=== PATIENT | female | born 1980 | race Caucasian/White ===

== ENCOUNTER 2016-07-07 14:52 | Outpatient (CLI) | payer MEDICAID | END 2016-07-07 14:53 | disposition home or self-care (01) | DX: T14.90 Injury, unspecified (principal) ==

== ENCOUNTER 2016-10-28 22:09 | Outpatient (CLI) | payer MEDICAID | END 2016-10-28 22:10 | disposition critical access hospital (66) | DX: R10.9 Unspecified abdominal pain (principal); R11.2 Nausea with vomiting, unspecified; R19.7 Diarrhea, unspecified | CPT/HCPCS: A0425; A0427 ==

== ENCOUNTER 2016-10-28 22:44 | Emergency (ER) | payer MEDICAID ==
--- NOTE | 2016-10-28 23:31 | ED Physician Documentation ---
PD HPI NVD - Stated complaint Stated Complaint: ABD PN/SOA(N/V/D) - Chief complaint Chief Complaint: Abd Pain - History obtained from History obtained from: Patient - History of Present Illness Timing - onset: Today Timing - duration: Hours (about 8 hours) Timing - details: Abrupt onset, Still present (she had onset of nausea, vomiting and diarrhea about 2-3 pm today, which has persisted with repetitive vomiting), Waxing and waning Associated symptoms: Abdominal pain (developed this evening after vomiting for several hours. Pain in epigastric area and esopagheal area, feeling burning and acidic. No noted hematemesis.), Loss of appetite. No: Fever, Hematemesis, Hematochezia, Near syncope / syncope Contributing factors: No: Sick contact, Bad food, Travel, Recent antibiotics Worsened by: Eating Similar symptoms before: Diagnosis (gallbladder infection years ago with [facility]; had similar symptoms.) Recently seen: Not recently seen Review of Systems Constitutional: denies: Fever, Chills, Myalgias Nose: denies: Rhinorrhea / runny nose, Congestion Throat: reports: Sore throat (since vomiting) Cardiac: denies: Chest pain / pressure Respiratory: denies: Dyspnea, Cough GI: reports: Abdominal Pain (for few hours), Nausea, Vomiting (for about 7-8 hours), Diarrhea. denies: Abdominal Swelling : denies: Dysuria, Frequency, Discharge, Missed period Skin: denies: Rash, Lesions Musculoskeletal: denies: Neck pain, Back pain Neurologic: reports: Generalized weakness. denies: Focal weakness, Numbness PD PAST MEDICAL HISTORY - Past Medical History Past Medical History: No GI: GERD - Past Surgical History Past Surgical History: Yes General: Cholecystectomy - Present Medications Home Medications: Ambulatory Orders Medication Instructions Recorded Confirmed Carbamazepine 200 10/28/16 Famotidine [Pepcid] 20 mg PO ONCE #30 tablet 10/29/16 Hydrocodone/Acetaminophen [[place] 1 each PO Q6H PRN #15 tablet 10/29/16 5-325 Tablet] Lidocaine Viscous 2% [Xylocaine 5 ml PO Q4H PRN #1 bottle 10/29/16 Viscous 2%] Ondansetron HCl [Zofran] 4 mg PO Q6H PRN #20 tablet 10/29/16 - Allergies Allergies/Adverse Reactions: Allergies Allergy/AdvReac Type Severity Reaction Status Date / Time No Known Drug Allergies Allergy Verified 10/28/16 22:55 - Social History Does the pt smoke?: No Smoking Status: Never smoker Does the pt drink ETOH?: No Does the pt have substance abuse?: No PD ED PE NORMAL - Vitals Vital signs reviewed: Yes - General General: Alert and oriented X 3, No acute distress, Well developed/nourished - HEENT HEENT: Ears normal, Moist mucous membranes, Pharynx benign - Neck Neck: Supple, no meningeal sign, No adenopathy - Cardiac Cardiac: RRR, No murmur - Respiratory Respiratory: Clear bilaterally - Abdomen Abdomen: Normal bowel sounds, Soft, Non distended, No organomegaly, Other ( tender epigastric area without guarding nor percussion tenderness. ) - Female Female : Deferred - Rectal Rectal: Deferred - Back Back: No CVA TTP - Derm Derm: Normal color, Warm and dry - Extremities Extremities: Normal ROM s pain, No edema, No calf tenderness / cord - Neuro Neuro: Alert and oriented X 3, No motor deficit, Normal speech - Psych Psych: Normal mood, Normal affect Results - Vitals Vitals: Vital Signs - 24 hr 10/28/16 10/29/16 22:47 00:53 Temperature 35.9 C L Heart Rate 67 75 Respiratory 16 14 Rate Blood Pressure 124/62 114/66 O2 Saturation 98 98 Oxygen O2 Source Room air - Labs Labs: Laboratory Tests 10/29/16 10/29/16 10/29/16 00:05 00:05 00:24 WBC 10.9 H RBC 3.86 L Hgb 12.4 Hct 36.0 L MCV 93.4 MCH 32.1 H MCHC 34.4 RDW 12.5 Plt Count 174 MPV 7.6 L Neut # 9.7 H Lymph # 0.5 L [place] # 0.6 Eos # 0.1 Baso # 0.0 Absolute Nucleated RBC 0.00 Nucleated RBCs 0.0 Sodium 137 Potassium 3.3 L Chloride 106 Carbon Dioxide 25 Anion Gap 6.0 BUN 14 Creatinine 0.7 Estimated GFR (MDRD) 96 Glucose 119 H Calcium 7.8 L Total Bilirubin 1.1 H AST 440 H ALT 250 H Alkaline Phosphatase 88 Total Protein 6.7 Albumin 3.8 Globulin 2.9 Albumin/Globulin Ratio 1.3 Lipase 36 Urine Color YELLOW Urine Clarity CLEAR Urine pH 6.5 Ur Specific [place] 1.020 Urine Protein NEGATIVE Urine Glucose (UA) NEGATIVE Urine Ketones TRACE Urine Occult Blood NEGATIVE Urine Nitrite NEGATIVE Urine Bilirubin NEGATIVE Urine Urobilinogen 0.2 (NORMAL) Ur Leukocyte Esterase NEGATIVE Ur Microscopic Review NOT INDICATED Urine Culture Comments NOT INDICATED Urine HCG, Qual NEGATIVE PD MEDICAL DECISION MAKING - ED course Complexity details: re-evaluated patient (improved symptoms with IV fluids and meds. Pain improved with GI cocktail but not resolved. Given IV meds for nausea and pain as well. ), considered differential, d/w patient Departure - Departure Disposition: 01 Home, Self Care Clinical Impression: Nausea vomiting and diarrhea, Epigastric abdominal pain Condition: Stable Record reviewed to determine appropriate education?: Yes Instructions: ED Nausea Vomiting, ED Gastritis Follow-Up: [facility] [Provider Group] Prescriptions: Hydrocodone/Acetaminophen [[place] 5-325 Tablet] 1 each PO Q6H PRN #15 tablet PRN Reason: Pain Famotidine [Pepcid] 20 mg PO ONCE #30 tablet Lidocaine Viscous 2% [Xylocaine Viscous 2%] 5 ml PO Q4H PRN #1 bottle PRN Reason: Pain Ondansetron HCl [Zofran] 4 mg PO Q6H PRN #20 tablet PRN Reason: Nausea / Vomiting Comments: At this point, it would seem most likely that you have a stomach virus causing the abrupt vomiting and diarrhea, and subsequently have irritated stomach and esophagus from the vomiting. Take Ondansatron as needed for nausea. Famotidine daily for 2-3 weeks as it can take several days or more for the stomach to heal the irritation and reducing stomach acids can help. Use Tylenol or hydrocodone for pain. You can also use 5 ml of the lidocaine along with some antacid such as Maalox or Mylanta to help with the esophageal/stomach pains the next couple of days. This should improve over the next 2-3 days. Return if not improving or if symptoms worsen. Forms: Activity restrictions Discharge Date/Time: 10/29/16 01:16
[2016-10-28] MEDS ORDERED: ONDANSETRON 4 MG/2 ML VIAL IVP STA (23:46)
[2016-10-28] MEDS ORDERED: SODIUM CHLORIDE 0.9% 1,000 ML IV ONE (23:46)
[2016-10-28] MEDS ORDERED: MAG HYDROX/AL HYDROX/SIMETH 30 ML UDC PO STA (23:47)
[2016-10-28] MEDS ORDERED: FAMOTIDINE 20 MG/50 ML 50 ML IV ONE (23:47)
[2016-10-28] MEDS ORDERED: HYDROmorphone 1 MG/ML SYRINGE IVP STA (23:47)
[2016-10-28] MEDS ORDERED: LIDOCAINE VISCOUS 2% 15 ML UDC MM STA (23:47)
[2016-10-29] MEDS ORDERED: MAG HYDROX/AL HYDROX/SIMETH 30 ML UDC ONE (00:01)
[2016-10-29] MEDS ORDERED: FAMOTIDINE 20 MG/50 ML 50 ML IV ONE (00:01)
[2016-10-29] MEDS ORDERED: HYDROmorphone 1 MG/ML SYRINGE ONE ×2 (00:01→00:58)
[2016-10-29] MEDS ORDERED: LIDOCAINE VISCOUS 2% 15 ML UDC MM ONE (00:01)
[2016-10-29] MEDS ORDERED: ONDANSETRON 4 MG/2 ML VIAL ONE (00:10)
[2016-10-29 00:18] LABS: BASOPHILS % (AUTO) 0.3 %; EOSINOPHILS # (AUTO) 0.1 10^3/uL (0.0-0.7); EOSINOPHILS % (AUTO) 0.6 %; HGB - HEMOGLOBIN 12.4 g/dL (12.0-16.0); LYMPHOCYTES # (AUTO) 0.5 10^3/uL (1.5-3.5); LYMPHOCYTES % (AUTO) 4.3 %; MEAN CORPUSCULAR HEMOGLOBIN 32.1 pg (27.0-31.0); MEAN CORPUSCULAR HGB CONC 34.4 g/dL (32.0-36.0); MEAN CORPUSCULAR VOLUME 93.4 fL (81.0-99.0); MEAN PLATELET VOLUME 7.6 fL (7.9-10.8); MONOCYTES # (AUTO) 0.6 10^3/uL (0.0-1.0); MONOCYTES % (AUTO) 5.4 %; NEUTROPHILS # (AUTO) 9.7 10^3/uL (1.5-6.6); NEUTROPHILS % (AUTO) 89.4 %; RED BLOOD COUNT 3.86 10^6/uL (4.20-5.40); RED CELL DISTRIBUTION WIDTH 12.5 % (12.0-15.0); UNCORRECTED WHITE BLOOD COUNT 10.9 x10^3/uL; WHITE BLOOD COUNT 10.9 x10^3/uL (4.8-10.8)
[2016-10-29 00:33] LABS: BILIRUBIN,URINE NEGATIVE (NEGATIVE); PH,URINE 6.5 PH (5.0-7.5)
[2016-10-29 00:34] LABS: HCG UR QUAL NEGATIVE; UA CHARGE (STRIP ONLY) YES; UR CULTURE IF IND NOT INDICATED
[2016-10-29 00:36] LABS: ALBUMIN/GLOBULIN RATIO 1.3 (1.0-2.2); BILIRUBIN,TOTAL 1.1 mg/dL (0.2-1.0); CALCIUM 7.8 mg/dL (8.5-10.3); CREATININE 0.7 mg/dL (0.4-1.0); POTASSIUM 3.3 mmol/L (3.5-5.0); TOTAL PROTEIN 6.7 g/dL (6.7-8.2)
[2016-10-29] MEDS ORDERED: HYDROmorphone 1 MG/ML SYRINGE IVP STA (00:49)
[2016-10-29] MEDS ORDERED: HYDROcod/ACET 5/325 Prepack 6 PO ONE ×2 (00:50→00:59)
[2016-10-29] MEDS ORDERED: ONDANSETRON ODT 4 MG Prepack 2 TL PRN (00:50)
[2016-10-29 00:55] VITALS: BP 114/66
[2016-10-29] MEDS ORDERED: ONDANSETRON ODT 4 MG Prepack 2 TL ONE (00:59)
== END 2016-10-29 01:16 | disposition home or self-care (01) ==
LOC: EDUNIT# → ED 22:44
DX: R11.2 Nausea with vomiting, unspecified (principal); R19.7 Diarrhea, unspecified; R10.13 Epigastric pain; K21.9 Gastro-esophageal reflux disease without esophagitis
CPT/HCPCS: 36415; 80053; 81003; 81025; 83690; 85025; 96374; 96375; 96376; 99284; A9270; J1170; 81001; 87086

== ENCOUNTER 2018-04-29 12:57 | Outpatient (CLI) | payer MEDICAID | END 2018-04-29 12:58 | disposition critical access hospital (66) | LOC: EMS 12:57 | PROVIDERS: ATTEND Surgery | DX: M25.521 Pain in right elbow (principal) | CPT/HCPCS: A0425; A0429; A0999 ==

== ENCOUNTER 2018-04-29 13:31 | Emergency (ER) | payer MEDICAID ==
[2018-04-29 13:38] VITALS: BP 122/94
[2018-04-29] MEDS ORDERED: LIDOCAINE 1%-EPI 1:100000 30 ML MDV SUBQ STA (13:39)
[2018-04-29] MEDS ORDERED: SULFAMETH/TRIMETH DS 800/160 MG TABLET PO STA (13:39)
--- NOTE | 2018-04-29 13:41 | ED Physician Documentation ---
PD HPI UPPER EXT INJURY - Stated complaint Stated Complaint: SWOLLEN ARM - Chief complaint Chief Complaint: Ext Problem - History obtained from History obtained from: Patient - History of Present Illness Location: Right, Elbow Type of injury: Other (She had a scrapeOver the right olecranon bursa that became progressively swollen and painful without fevers or chills.) Review of Systems Constitutional: denies: Fever, Chills Cardiac: reports: Reviewed and negative Respiratory: reports: Reviewed and negative : reports: Reviewed and negative PD PAST MEDICAL HISTORY - Past Medical History GI: GERD - Past Surgical History Past Surgical History: Yes General: Cholecystectomy - Present Medications Home Medications: Ambulatory Orders Medication Instructions Recorded Confirmed Carbamazepine 200 10/28/16 Famotidine [Pepcid] 20 mg PO ONCE #30 tablet 10/29/16 Hydrocodone/Acetaminophen [[place] 1 each PO Q6H PRN #15 tablet 10/29/16 5-325 Tablet] Lidocaine Viscous 2% [Xylocaine 5 ml PO Q4H PRN #1 bottle 10/29/16 Viscous 2%] Ondansetron HCl [Zofran] 4 mg PO Q6H PRN #20 tablet 10/29/16 Sulfamethoxazole/Trimethoprim 1 each PO BID #14 tablet 04/29/18 [Sulfamethoxazole-Tmp Ds Tablet] - Allergies Allergies/Adverse Reactions: Allergies Allergy/AdvReac Type Severity Reaction Status Date / Time No Known Drug Allergies Allergy Verified 04/29/18 13:37 - Social History Does the pt smoke?: No Smoking Status: Never smoker Does the pt drink ETOH?: No Does the pt have substance abuse?: No PD ED PE NORMAL - Vitals Vital signs reviewed: Yes - General General: Alert and oriented X 3, No acute distress - Extremities Extremities: Other (On the right she has what appears to be septic olecranon bursitis with a little scrape over the olecranon bursa and swelling with cellulitis about a third the way down the forearm. She has full and painless range of motion of the right elbow.) - Neuro Neuro: Alert and oriented X 3, Normal speech Results - Vitals Vitals: Vital Signs - 24 hr 04/29/18 13:35 Temperature 36.5 C Heart Rate 83 Respiratory 16 Rate Blood Pressure 122/94 H O2 Saturation 98 Oxygen O2 Source Room air Procedures - Abscess I&D (location) R olecranon bursa Preparation: Chlorhexadine, Lidocaine 1%, With epi Incision: Incised with scalpel, Purulent drainage, Loculations broken, Culture obtained. No: Packed (too small) Other: Pt tolerated well, Dressing applied, Antibiotic prescribed Departure - Departure Disposition: 01 Home, Self Care Clinical Impression: Olecranon bursitis, right elbow Condition: Good Record reviewed to determine appropriate education?: Yes Instructions: ED Bursitis Elbow Olecranon Follow-Up: [facility] [Provider Group] Prescriptions: Sulfamethoxazole/Trimethoprim [Sulfamethoxazole-Tmp Ds Tablet] 1 each PO BID #14 tablet Comments: We are performing a wound culture, the results should be done in 48-72 hours. If antibiotic change is necessary we will call you. Return if worse in the m eantime, especially if you develop increased pain, fevers, cannot keep down the medication. Otherwise follow-up with your physician in approximately 2-3 days.
== END 2018-04-29 14:27 | disposition home or self-care (01) ==
LOC: EDBD → EDUNIT# → ED 13:31
DX: M70.21 Olecranon bursitis, right elbow (principal)
CPT/HCPCS: 23931; 87070; 87181; 87205; 99283

== ENCOUNTER 2018-04-29 16:30 | Emergency (ER) | payer MEDICAID ==
[2018-04-29] MEDS ORDERED: IBUPROFEN 800 MG TABLET PO STA (16:40)
--- NOTE | 2018-04-29 16:41 | ED Physician Documentation ---
PD HPI UPPER EXT INJURY - Stated complaint Stated Complaint: RT ARM PX - History obtained from History obtained from: Patient - History of Present Illness Location: Right (She was seen earlier in the day for right olecranon bursitis. She had declined pain medication at the time, but she has been waiting in the waiting room for a cab and now is starting to hurt more and checks back and requesting pain medication.) Review of Systems Constitutional: reports: Reviewed and negative Cardiac: reports: Reviewed and negative Respiratory: reports: Reviewed and negative PD PAST MEDICAL HISTORY - Past Medical History GI: GERD - Past Surgical History Past Surgical History: Yes General: Cholecystectomy - Present Medications Home Medications: Ambulatory Orders Medication Instructions Recorded Confirmed Carbamazepine 200 10/28/16 Famotidine [Pepcid] 20 mg PO ONCE #30 tablet 10/29/16 Hydrocodone/Acetaminophen [[place] 1 each PO Q6H PRN #15 tablet 10/29/16 5-325 Tablet] Lidocaine Viscous 2% [Xylocaine 5 ml PO Q4H PRN #1 bottle 10/29/16 Viscous 2%] Ondansetron HCl [Zofran] 4 mg PO Q6H PRN #20 tablet 10/29/16 Ibuprofen [Motrin] 800 mg PO Q8H PRN #30 tablet 04/29/18 Sulfamethoxazole/Trimethoprim 1 each PO BID #14 tablet 04/29/18 [Sulfamethoxazole-Tmp Ds Tablet] - Allergies Allergies/Adverse Reactions: Allergies Allergy/AdvReac Type Severity Reaction Status Date / Time No Known Drug Allergies Allergy Verified 04/29/18 13:37 - Social History Does the pt smoke?: No Smoking Status: Never smoker Does the pt drink ETOH?: No Does the pt have substance abuse?: No PD ED PE NORMAL - Vitals Vital signs reviewed: Yes - General General: Alert and oriented X 3, No acute distress - Extremities Extremities: Other (The arm was not unwrapped are reexamined given the short time frame since the last examination.) - Neuro Neuro: Alert and oriented X 3, Normal speech - Psych Psych: Normal mood, Normal affect Results - Vitals Vitals: Oxygen O2 Source Room air Departure - Departure Disposition: 01 Home, Self Care Clinical Impression: Olecranon bursitis, right elbow Condition: Good Record reviewed to determine appropriate education?: Yes Prescriptions: Ibuprofen [Motrin] 800 mg PO Q8H PRN #30 tablet PRN Reason: PAIN &/OR FEVER Comments: Still follow the discharge instructions from earlier in the day regarding follow-up
[2018-04-29 16:43] VITALS: BP 137/95
== END 2018-04-29 16:48 | disposition home or self-care (01) ==
LOC: ED 16:30
DX: M70.21 Olecranon bursitis, right elbow (principal)
CPT/HCPCS: 23931; 87070; 87181; 87205; 99283; A9270

== ENCOUNTER 2018-07-09 11:27 | Emergency (ER) | payer MEDICAID ==
[2018-07-09 12:10] VITALS: BP 118/58
--- NOTE | 2018-07-09 15:31 | ED Physician Documentation ---
History of Present Illness - Stated complaint Stated Complaint: RIB PAIN - Chief complaint Chief Complaint: General - History obtained from History obtained from: Patient - Additonal information Additional information: Patient is a 38-year-old female presenting with right-sided posterior rib pain Following fall down the stairs several days ago. Patient denies striking of head, loss of consciousness, or other injury. Currently she has no complaints such as headache, difficulty breathing, neck or back pain, abdominal pain, vaginal changes such as worsening bleeding, urinary or stool changes. Patient has been in her usual state of health otherwise. Patient reports movement has worsening symptoms and there are no alleviating factors. Review of Systems Constitutional: denies: Fever Cardiac: denies: Chest pain / pressure PD PAST MEDICAL HISTORY - Past Medical History GI: GERD - Past Surgical History Past Surgical History: Yes General: Cholecystectomy - Present Medications Home Medications: Ambulatory Orders Medication Instructions Recorded Confirmed RX: Carbamazepine 200 10/28/16 Hydrocodone/Acetaminophen [[place] 1 each PO Q6H PRN #15 tablet 10/29/16 5-325 Tablet] Ondansetron HCl [Zofran] 4 mg PO Q6H PRN #20 tablet 10/29/16 RX: Famotidine [Pepcid] 20 mg PO ONCE #30 tablet 10/29/16 RX: Lidocaine Viscous 2% 5 ml PO Q4H PRN #1 bottle 10/29/16 [Xylocaine Viscous 2%] Ibuprofen [Motrin] 800 mg PO Q8H PRN #30 tablet 04/29/18 Sulfamethoxazole/Trimethoprim 1 each PO BID #14 tablet 04/29/18 [Sulfamethoxazole-Tmp Ds Tablet] - Allergies Allergies/Adverse Reactions: Allergies Allergy/AdvReac Type Severity Reaction Status Date / Time No Known Drug Allergies Allergy Verified 07/09/18 12:10 - Social History Does the pt smoke?: No Smoking Status: Never smoker Does the pt drink ETOH?: No Does the pt have substance abuse?: No PD ED PE NORMAL - General General: Alert and oriented X 3, No acute distress, Well developed/nourished - HEENT HEENT: Atraumatic, Moist mucous membranes, Pharynx benign - Cardiac Cardiac: RRR, No murmur, Other (Reproducible pain with palpation of her right posterior ribs at approximate level of 8-10. Remainder of ribs and sternum without pain when palpated.) - Respiratory Respiratory: No respiratory distress, Clear bilaterally - Abdomen Abdomen: Normal bowel sounds, Soft, Non tender, Non distended - Derm Derm: Normal color, Warm and dry, No rash - Extremities Extremities: No deformity - Neuro Neuro: Alert and oriented X 3, No motor deficit, No sensory deficit Results - Vitals Vitals: Vital Signs - 24 hr 07/09/18 12:06 Temperature 36.2 C L Heart Rate 75 Respiratory 16 Rate Blood Pressure 118/58 L O2 Saturation 100 Oxygen O2 Source Room air PD MEDICAL DECISION MAKING - ED course Complexity details: reviewed results, re-evaluated patient, considered differential, d/w patient, d/w family ED course: Most concerning for rib contusion, rib fracture, chest wall injury, musculoskeletal injury given patient's type of injury, location of discomfort, and physical exam findings. Patient [place] denies other injuries and did not find high concerns for intracranial, spinal spinal cord, other chest, abdominal, or extremity trauma. Patient also denies symptoms that raise concerns for other acute medical emergencies or systemic signs of illness. Patient denies and chest x-ray with rib plain films also obtained which not been evidence of abnormality. Discussed results and recommendations with patient, as well as supportive cares, return precautions, and appropriate follow-up. Departure - Departure Disposition: 01 Home, Self Care Clinical Impression: Rib pain on right side Condition: Good Instructions: ED Contusion Chest Wall Follow-Up: Felicia Figueroa ARNP [Primary Care Provider] - Within 3 Days Comments: Recommend use of ibuprofen/Tylenol to help reduce pain and discomfort, may also apply heating pad. Recommend follow-up with primary care physician next 2-3 days and return to ED sooner if expands worsening symptoms or other concerns. Discharge Date/Time: 07/09/18 16:56
--- NOTE | 2018-07-09 16:41 | XRAY Report ---
Reason: RIGHT POSTERIOR RIB PAIN Procedure Date: 07/09/2018 Accession Number: [id number] / [id number] Procedure: XR - Ribs w/PA Chest RT CPT Code: FULL RESULT: EXAM: RIGHT RIB RADIOGRAPHY EXAM DATE: 07/09/2018 04:06 PM. CLINICAL HISTORY: RIGHT POSTERIOR RIB PAIN. COMPARISON: None. TECHNIQUE: 1 view of the chest and 4 views of the ribs. FINDINGS: Bones: Normal. No fracture or bone lesion. Lungs: No focal opacities. No pneumothorax. No pleural effusions. Mediastinum: Heart and mediastinal contours are unremarkable. Other: None. IMPRESSION: Normal chest and rib radiography. [facility]
== END 2018-07-09 16:56 | disposition home or self-care (01) ==
LOC: ED 11:27
DX: R07.81 Pleurodynia (principal); Z91.81 History of falling
CPT/HCPCS: 99282

== ENCOUNTER 2018-08-19 18:32 | Emergency (ER) | payer MEDICAID ==
[2018-08-19 18:36] VITALS: BP 140/70
--- NOTE | 2018-08-19 19:14 | ED Physician Documentation ---
PD HPI FEMALE - Stated complaint Stated Complaint: FEM - Chief complaint Chief Complaint: Abd Pain - History obtained from History obtained from: Patient - History of Present Illness Timing - onset: Today (She has a tampon stuck in her vagina) Timing - details: Abrupt onset Associated symptoms: No: Abdominal pain Review of Systems Constitutional: reports: Reviewed and negative Cardiac: reports: Reviewed and negative Respiratory: reports: Reviewed and negative PD PAST MEDICAL HISTORY - Past Medical History GI: GERD - Past Surgical History Past Surgical History: Yes General: Cholecystectomy - Present Medications Home Medications: Ambulatory Orders Medication Instructions Recorded Confirmed Carbamazepine 200 10/28/16 Famotidine [Pepcid] 20 mg PO ONCE #30 tablet 10/29/16 Hydrocodone/Acetaminophen [[place] 1 each PO Q6H PRN #15 tablet 10/29/16 5-325 Tablet] Lidocaine Viscous 2% [Xylocaine 5 ml PO Q4H PRN #1 bottle 10/29/16 Viscous 2%] Ondansetron HCl [Zofran] 4 mg PO Q6H PRN #20 tablet 10/29/16 Ibuprofen [Motrin] 800 mg PO Q8H PRN #30 tablet 04/29/18 Sulfamethoxazole/Trimethoprim 1 each PO BID #14 tablet 04/29/18 [Sulfamethoxazole-Tmp Ds Tablet] - Allergies Allergies/Adverse Reactions: Allergies Allergy/AdvReac Type Severity Reaction Status Date / Time No Known Drug Allergies Allergy Verified 08/19/18 18:36 - Social History Does the pt smoke?: No Smoking Status: Never smoker Does the pt drink ETOH?: No Does the pt have substance abuse?: No PD ED PE NORMAL - Vitals Vital signs reviewed: Yes - General General: Alert and oriented X 3, No acute distress - Female Female : Casting Sorter present (Jessica ANAYA), Other (There was a tampon deep in the vaginal vault which was removed easily using forceps during examination.) - Neuro Neuro: Alert and oriented X 3, Normal speech - Psych Psych: Normal mood, Normal affect Results - Vitals Vitals: Vital Signs - 24 hr 08/19/18 18:35 Temperature 36.5 C Heart Rate 65 Respiratory 17 Rate Blood Pressure 140/70 H O2 Saturation 100 Oxygen O2 Source Room air Departure - Departure Disposition: 01 Home, Self Care Clinical Impression: Vaginal foreign body Qualifiers: Encounter type: initial encounter Qualified Code(s): T19.2XXA - Foreign body in vulva and vagina, initial encounter Condition: Good Record reviewed to determine appropriate education?: Yes Instructions: ED Foreign Body Vaginal Comments: Your blood pressure was elevated today on check into the emergency department. This does not mean that you have hypertension, it is a common phenomenon to come to the emergency department and have elevated blood pressure. I recommend that you see your primary care physician within the week to have it rechecked when you are feeling better.
== END 2018-08-19 19:31 | disposition home or self-care (01) ==
LOC: ED 18:32
DX: T19.2XXA Foreign body in vulva and vagina, initial encounter (principal); X58.XXXA Exposure to other specified factors, initial encounter; R03.0 Elevated blood-pressure reading, without diagnosis of hypertension
CPT/HCPCS: 99283

== ENCOUNTER 2020-08-14 | Emergency (ER) | payer MEDICAID ==
--- NOTE | 2020-08-14 17:18 | ED Physician Documentation ---
PD HPI SKIN - Stated complaint Stated Complaint: RASH - Chief complaint Chief Complaint: Wound - History obtained from History obtained from: Patient (She noticed a rash mostly on the left upper extremity starting yesterday. No clear inciting factor. Its not particularly itchy. She thinks is on the right arm as well but much milder there.) Review of Systems Constitutional: reports: Reviewed and negative Eyes: reports: Reviewed and negative Ears: reports: Reviewed and negative Nose: reports: Reviewed and negative PD PAST MEDICAL HISTORY - Past Medical History GI: GERD : None - Past Surgical History Past Surgical History: Yes General: Cholecystectomy - Present Medications Home Medications: Ambulatory Orders Medication Instructions Recorded Confirmed Carbamazepine 200 10/28/16 Famotidine [Pepcid] 20 mg PO ONCE #30 tablet 10/29/16 Hydrocodone/Acetaminophen [[place] 1 each PO Q6H PRN #15 tablet 10/29/16 5-325 Tablet] Lidocaine Viscous 2% [Xylocaine 5 ml PO Q4H PRN #1 bottle 10/29/16 Viscous 2%] Ondansetron HCl [Zofran] 4 mg PO Q6H PRN #20 tablet 10/29/16 Ibuprofen [Motrin] 800 mg PO Q8H PRN #30 tablet 04/29/18 Sulfamethoxazole/Trimethoprim 1 each PO BID #14 tablet 04/29/18 [Sulfamethoxazole-Tmp Ds Tablet] Triamcinolone 0.1% Oint 1 applic TOP BID #80 gm 08/14/20 - Allergies Allergies/Adverse Reactions: Allergies Allergy/AdvReac Type Severity Reaction Status Date / Time No Known Drug Allergies Allergy Verified 08/14/20 16:53 - Social History Does the pt smoke?: No Smoking Status: Never smoker Does the pt drink ETOH?: No Does the pt have substance abuse?: No PD ED PE NORMAL - Vitals Vital signs reviewed: Yes - General General: Alert and oriented X 3, No acute distress - Derm Derm: Other (There is about a palm sized area of what looks like urticaria on the left bicep. I do not appreciated anywhere else.) - Neuro Neuro: Alert and oriented X 3, Normal speech Results - Vitals Vitals: Vital Signs - 24 hr 08/14/20 16:48 Temperature 36.7 C Heart Rate 54 L Respiratory 16 Rate Blood Pressure 112/66 O2 Saturation 100 Oxygen O2 Source Room air Departure - Departure Disposition: 01 Home, Self Care Clinical Impression: Urticaria Condition: Good Record reviewed to determine appropriate education?: Yes Instructions: ED Urticaria Prescriptions: Triamcinolone 0.1% Oint 1 applic TOP BID #80 gm Comments: Worsening or if new symptoms develop. Follow-up with your doctor next week for recheck. The steroid cream should help in the meantime.
== END 2020-08-14 17:27 | disposition home or self-care (01) ==
DX: L50.9 Urticaria, unspecified (principal)
CPT/HCPCS: 99282; 99283

== ENCOUNTER 2020-08-26 08:45 | Emergency (ER) | payer MEDICAID ==
[2020-08-26 09:01] VITALS: BP 111/56
[2020-08-26 10:02] LABS: BILIRUBIN,URINE NEGATIVE (NEGATIVE); GLUCOSE, URINE (UA) NEGATIVE (NEGATIVE); KETONES,URINE (UA) NEGATIVE (NEGATIVE); LEUKOCYTE ESTERASE, URINE NEGATIVE (NEGATIVE); NITRITE,URINE NEGATIVE (NEGATIVE); OCCULT BLOOD,URINE MODERATE (NEGATIVE); PROTEIN,URINE NEGATIVE (NEGATIVE); UROBILINOGEN,URINE 0.2 (NORMAL) E.U./dL (NORMAL)
[2020-08-26 10:03] LABS: BACTERIA,URINE None Seen /HPF (None Seen); CLARITY,URINE CLEAR (CLEAR); HCG UR QUAL NEGATIVE; SQUAMOUS EPITHELIAL CELL,UR RARE Squamous (<= Few); WBC,URINE 0-3 /HPF (0-5)
--- NOTE | 2020-08-26 10:17 | ED Physician Documentation ---
History of Present Illness - Stated complaint Stated Complaint: FEMALE - Chief complaint Chief Complaint: General - History obtained from History obtained from: Patient - Additonal information Additional information: 40-year-old woman with history of irregular menses presents with vaginal spotting over the past 3 days. She denies back pain, abdominal pain, nausea or vomiting, dysuria, increased urinary frequency or foul smell. She states she has no concern for STI and is not sexually active. No other prior medical history and no history of kidney disease. Patient would like to make sure that she does not have a life-threatening condition. Review of Systems Constitutional: denies: Fever, Chills GI: denies: Abdominal Pain : reports: Vaginal bleeding. denies: Dysuria Musculoskeletal: denies: Back pain PD PAST MEDICAL HISTORY - Past Medical History Past Medical History: Yes GI: GERD : None - Past Surgical History Past Surgical History: Yes General: Cholecystectomy - Present Medications Home Medications: Ambulatory Orders Medication Instructions Recorded Confirmed Carbamazepine 200 10/28/16 Famotidine [Pepcid] 20 mg PO ONCE #30 tablet 10/29/16 Hydrocodone/Acetaminophen [[place] 1 each PO Q6H PRN #15 tablet 10/29/16 5-325 Tablet] Lidocaine Viscous 2% [Xylocaine 5 ml PO Q4H PRN #1 bottle 10/29/16 Viscous 2%] Ondansetron HCl [Zofran] 4 mg PO Q6H PRN #20 tablet 10/29/16 Ibuprofen [Motrin] 800 mg PO Q8H PRN #30 tablet 04/29/18 Sulfamethoxazole/Trimethoprim 1 each PO BID #14 tablet 04/29/18 [Sulfamethoxazole-Tmp Ds Tablet] Triamcinolone 0.1% Oint 1 applic TOP BID #80 gm 08/14/20 - Allergies Allergies/Adverse Reactions: Allergies Allergy/AdvReac Type Severity Reaction Status Date / Time everything Allergy Unknown Uncoded 08/26/20 09:04 - Social History Does the pt smoke?: No Smoking Status: Never smoker Does the pt drink ETOH?: No Does the pt have substance abuse?: No PD ED PE NORMAL - Vitals Vital signs reviewed: Yes - General General: Alert and oriented X 3, No acute distress, Well developed/nourished - HEENT HEENT: Atraumatic, PERRL, EOMI - Neck Neck: Supple, no meningeal sign - Cardiac Cardiac: RRR - Respiratory Respiratory: No respiratory distress, Clear bilaterally - Abdomen Abdomen: Non tender, Non distended - Female Female : Pt declined - Back Back: No CVA TTP - Derm Derm: Normal color - Extremities Extremities: No deformity - Neuro Neuro: Alert and oriented X 3 - Psych Psych: Normal mood, Normal affect Results - Vitals Vitals: Vital Signs - 24 hr 08/26/20 08:52 Temperature 36.6 C Heart Rate 58 L Respiratory 16 Rate Blood Pressure 111/56 L O2 Saturation 100 Oxygen O2 Source Room air - Labs Labs: Laboratory Tests 08/26/20 08/26/20 09:56 09:56 Urine Color YELLOW Urine Clarity CLEAR Urine pH 7.0 Ur Specific [place] 1.010 Urine Protein NEGATIVE Urine Glucose (UA) NEGATIVE Urine Ketones NEGATIVE Urine Occult Blood MODERATE H Urine Nitrite NEGATIVE Urine Bilirubin NEGATIVE Urine Urobilinogen 0.2 (NORMAL) Ur Leukocyte Esterase NEGATIVE Urine RBC 6-10 H Urine WBC 0-3 Ur Squamous Epith Cells RARE Squamous Urine Bacteria None Seen Urine Culture Comments NOT INDICATED Urine HCG, Qual NEGATIVE PD MEDICAL DECISION MAKING - ED course ED course: 40-year-old woman, previously healthy, presented with concerns about vaginal bleeding versus hematuria. She was reassured after a urinalysis showed no signs of infection or kidney dysfunction. I did discuss that there was blood on the urinalysis but that it is more likely coming from the vagina given that she is prone to irregular menses. LMP 1 week ago. I offered to do a vaginal exam and she declined. She states that she has no concern for STI. She does not believe that she has a vaginal foreign body. Return precautions given. Patient will follow up with [facility]. Departure - Departure Disposition: 01 Home, Self Care Clinical Impression: Vaginal spotting, Irregular menses Condition: Good Instructions: ED Bleed Irregular Vaginal Follow-Up: Neris Rincon MD [Provider Admit Priv/Credential] - Comments: You were seen in the emergency department for a small amount of vaginal bleeding. You do not have signs of infection or kidney failure on history and exam or urinalysis. You are also not .You are probably having some spotting in between periods. Please return to the emergency department if you have heavy menstrual bleeding and her becoming lightheaded. Return if you have any new or worsening symptoms or other concerns including fever, severe abdominal pain, back pain, nausea or vomiting. Follow-up with [facility].
== END 2020-08-26 10:24 | disposition home or self-care (01) ==
LOC: ED 08:45
DX: N93.9 Abnormal uterine and vaginal bleeding, unspecified (principal)
CPT/HCPCS: 81001; 81025; 87086; 99281; 99284

== ENCOUNTER 2021-01-13 07:18 | Emergency (ER) | payer MEDICAID ==
[2021-01-13 07:27] VITALS: BP 98/66
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
[2021-01-13] MEDS ORDERED: MUPIROCIN 2% OINT 1 GM TOP STA (07:46)
--- NOTE | 2021-01-13 08:07 | XRAY Report ---
PROCEDURE: Foot 3 View RT INDICATIONS: foot pain 3/4th MTPs. TECHNIQUE: 3 views of the foot were acquired. COMPARISON: None FINDINGS: Bones: No fractures or dislocations. No suspicious bony lesions. Soft tissues: No tibiotalar joint effusion. Achilles tendon appears normal. IMPRESSION: No visualized acute fracture or dislocation. However, occult injury cannot be excluded. Recommend renzo rt interval imaging follow-up in 7-10 days as clinically indicated for additional evaluation. Reviewed by: Cintia Fajardo MD on 01/13/2021 8:06 AM PDT Approved by: Cintia Fajardo MD on 01/13/2021 8:06 AM PDT Station ID: [id number]
== END 2021-01-13 08:42 | disposition home or self-care (01) ==
LOC: ED 07:18
DX: L03.115 Cellulitis of right lower limb (principal); L02.415 Cutaneous abscess of right lower limb
CPT/HCPCS: 73630; 87070; 87077; 87181; 87205; 99284; A9270